=== PATIENT | female | born 1995 | race Caucasian/White ===

== ENCOUNTER 2017-07-27 10:17 | Emergency (ER) | payer OTHER ==
[~2017-07-27] VITALS: Ht 177.8 cm; Wt 95.0 kg
[~2017-07-27 10:17] MED LIST: FERR325T18 PO; HYDR-3237 PO
[2017-07-27] MEDS ORDERED: VIT1TABL89 PO (10:43)
[2017-07-27 11:15] LABS: HCG UR LOT HCG7030192
[2017-07-27 11:26] LABS: HCG UR OBC PASS
[2017-07-27] MEDS ORDERED: KETOROLAC 30 MG/1 ML IM ONE (11:30)
[2017-07-27] MEDS ORDERED: KETOROLAC 30 MG/1 ML ONE (11:31)
[2017-07-27] MEDS ORDERED: CEFTRIAXONE 1,000 MG IM ONE (12:00)
[2017-07-27] MEDS ORDERED: CEFTRIAXONE 1,000 MG ONE (12:10)
[2017-07-27 12:53] VITALS: BP 119/70
== END 2017-07-27 12:56 | disposition home or self-care (01) ==
LOC: ED 12:50
DX: N10 Acute pyelonephritis (principal); F17.210 Nicotine dependence, cigarettes, uncomplicated
CPT/HCPCS: 81001; 81025; 87077; 87086; 96372; 99284; J0696; J1885; 87186

== ENCOUNTER → 2018-05-19 | Outpatient (CLI) | payer OTHER ==
[~2018-05-19] MED LIST changes: +VIT1TABL89 PO
== END | disposition home or self-care (01) ==
LOC: LAB 11:27
PROVIDERS: ATTEND Internal Medicine Critical Care Medicine
DX: R53.83 Other fatigue (principal)
CPT/HCPCS: 36415; 86618; 87476